=== PATIENT | male | born 1945 | race Caucasian/White ===

== ENCOUNTER 2021-04-30 16:42 | Emergency (ER) | payer OTHER, BC, SELFPAY ==
--- NOTE | ~2021-04-30 | CT_ITS ---
EXAMINATION: CT ABDOMEN AND PELVIS WITHOUT CONTRAST CLINICAL INFORMATION: Left flank pain. COMPARISON: CT abdomen without contrast 07/20/2007. TECHNIQUE: Multidetector volumetric imaging was performed from the superior aspect of the liver through the pubic symphysis. Sagittal and coronal reformatted images were obtained on the technologist's workstation. This CT examination was performed using dose optimization techniques as appropriate, variously including the following: *Automated exposure control *Adjustment of mA and/or kV according to patient size (this includes techniques or standardized protocols for targeted exams where dose is matched to indication/reason for exam; i.e. extremities or head) *Use of iterative reconstruction technique DLP: 529 mGy-cm FINDINGS: LUNG BASES: The lung bases are clear. There is bibasilar dependent emphysematous changes. Heart size is normal. LIVER, GALLBLADDER, AND BILIARY TREE: The liver is normal in size, shape, and attenuation. No focal hepatic lesion or biliary ductal dilatation is present. The gallbladder is unremarkable with no evidence of radiopaque gallstones, gallbladder wall thickening, or obvious pericholecystic inflammatory changes. PANCREAS: Unremarkable. SPLEEN: Unremarkable. ADRENAL GLANDS: Unremarkable. KIDNEYS AND URETERS: The right kidney is normal in size, shape, and attenuation. There is a 3 mm radiopaque calculi left UPJ with mild hydronephrosis and enlargement of left kidney. There is mild bilateral perinephric stranding. BLADDER: Unremarkable. GASTROINTESTINAL TRACT: There is scattered stool, diverticuli and gas seen throughout the colon. There is mild wall thickening of the sigmoid: Extending to the rectum. This could be secondary to underdistention or underlying inflammatory process. No perirectal and perisigmoid colon fat stranding seen. Rest of colon and small bowel loops are normal. The appendix is normal caliber. ABDOMINAL WALL: No significant hernia is appreciated. LYMPH NODES: Normal. VASCULAR: Unremarkable. PELVIC VISCERA: No free air or free fluid. The prostate gland is moderately enlarged elevating the base of the bladder. OSSEOUS STRUCTURES: There is degenerative disc changes L5-S1 disc level with vacuum disc phenomena moderate ventral spondylosis seen throughout lumbar spine. No acute fracture or lytic process seen. CT/CT abdomen pelvis wo con IMPRESSION: Obstructive 3 mm radiopaque calculi left UPJ with mild hydronephrosis and enlargement of left kidney. Mild constipation with diverticulosis but no diverticulitis or obstruction. Nonspecific mild wall thickening involving the rectum and the sigmoid colon. Nonspecific finding question inflammatory process. Correlate with clinical exam Moderate constipation
[2021-04-30 17:36] VITALS: BP 131/77; PULSE 64; RESP 16; TEMP 36.9; O2SAT 99; BMI 22.8
[2021-04-30 17:53] LABS: Glucose Urine UA NEG (NEG); Leukocyte Esterase Urine TRACE (NEG); Nitrite Urine NEG (NEG); PH 5.5 (5.0-8.0); Specific Gravity - Urine >= 1.030 (1.005-1.025); Urine Blood 3+ (NEG); Urine Ketones 15 MG/DL (NEG); Urine Protein TRACE MG/DL (NEG-TRACE)
[2021-04-30 17:59] LABS: Appearance Urine CLOUDY; Color Urine YELLOW; RBC Urine TNTC /HPF (0)
--- NOTE | 2021-04-30 18:17 | ED.GENADULT ---
HPI - General Adult General Chief complaint: General Medical Stated complaint: flank pain Time Seen by Provider: 04/30/21 18:17 Source: patient Mode of arrival: ambulatory Limitations: no limitations History of Present Illness HPI narrative: Patient with no significant past medical history noticed sudden onset of sharp pain left flank area since 13:00 radiating to left lower quadrant with dark urine and slight nausea no fever no chills no dysuria patient never had any kidney stone before no shortness of breath no cough Related Data Previous Rx's Medication Instructions Recorded ibuprofen 600 mg PO Q6H PRN #20 tab 04/30/21 oxycodone 5 mg PO Q6H PRN #20 tab 04/30/21 tamsulosin [Flomax] 0.4 mg PO DAILY #10 cap 04/30/21 Allergies Allergy/AdvReac Type Severity Reaction Status Date / Time No Known Allergies Allergy Verified 04/30/21 17:36 Review of Systems Review of Systems: Constitutional : No Weight loss, No Fever, No Chills ENT/Mouth : No sore throat, No Rhinorrhea Eyes: No Eye Pain, No Swelling Cardiovascular : No Chest Pain, no palpitations Respiratory : No Cough, No Sputum, no shortness of breath Gastrointestinal : + Nausea, No Vomiting, No Diarrhea, + abdominal Pain, no black stools Genitourinary : No Dysuria, No Urinary Frequency Musculoskeletal : No joint pain, No Myalgias, No Joint Swelling Skin : No Skin Lesions, No rash Neuro : No Weakness, No Numbness, No Dizziness, No Headache Psych : No Anxiety/Panic, No Depression Heme/Lymph: No Bruising, No Lymphadenopathy Endocrine : No Polyuria, No Polydipsia All other systems reviewed and are negative [facility] Social History Social History Advance Directives: No Advance Directives Information Provided: Yes Physical Exam Vital Signs: Vital Signs: Last Vital Signs Temp 98.1 F 04/30/21 20:03 Pulse 58 04/30/21 20:03 Resp 18 04/30/21 20:03 BP 116/67 04/30/21 20:03 Pulse Ox 96 04/30/21 20:03 Body Mass Index 22.8 Appearance: Alert. Oriented X3. No acute distress. Eyes: PERRLA, No Nystagmus ENT: Pharynx normal. Oral Mucosa moist Neck: Normal inspection. Neck supple. CVS: Normal heart rate and rhythm. Pulses normal. Respiratory: No respiratory distress. Equal air entry bilateral, no wheezing/rales/rhonchi Abdomen: Soft and nontender. Bowel sounds are present, no mass palpable, + L CVA tenderness Skin: Skin warm and dry. Normal skin color. Normal skin turgor. Extremities: No lower extremity edema. No calf tenderness Neuro: Oriented X 3. No motor deficit. No sensory deficit.No cerebellar signs , cranial nerves II-XII intact Medical Decision Making MDM Narrative Medical decision making narrative: Patient with 3 mm left UPJ stone with mild hydronephrosis feeling much better after pain medication will discharge him home on Flomax and oxycodone advised to follow with urologist Lab Data Lab results reviewed: Yes I reviewed the patient's lab results. Result diagrams: 04/30/21 18:42 04/30/21 18:42 Labs: Lab Results 04/30/21 04/30/21 04/30/21 Range/Units 17:44 18:42 18:42 WBC 7.5 (4.8-10.8) X10*3/uL RBC 4.28 L (4.60-5.80) X10*6/uL Hgb 14.7 (14.0-18.0) g/dl Hct 43.0 (42-52) % MCV 100.5 H (80-98) fL MCH 34.3 H (27.0-33.0) pg MCHC 34.2 (31.0-36.0) g/dl RDW 12.0 (11.0-16.0) % Plt Count 184 (160-400) X10*3/uL MPV 9.9 (9.4-12.4) fL Immature Gran % (Auto) 0.4 (0.0-0.4) % Neut % (Auto) 77.0 H (45-73) % Lymph % (Auto) 13.0 L (20-40) % Archuleta % (Auto) 7.9 (2-11) % Eos % (Auto) 1.3 (0-4) % Baso % (Auto) 0.4 (0-2) % Lymph # (Auto) 1.0 L (1.2-4.9) X10*3/uL [place]ule[place] # (Auto) 0.6 (0.1-1.2) X10*3/uL Eos # (Auto) 0.1 (0.0-0.4) X10*3/uL Baso # (Auto) 0.0 (0.0-0.2) X10*3/uL Abs Immat Gran (auto) 0.03 (0.00-0.03) X10*3/uL Absolute Neuts (auto) 5.7 (2.0-8.3) X10*3/uL Absolute Nucleated RBC 0.000 (0.0-0.012) X10*3/uL Nucleated RBC % (auto) 0.0 (0.0-0.2) /100WBC Sodium 139 (135-145) mmol/L Potassium 4.4 (3.3-5.1) mmol/L Chloride 106 (96-108) mmol/L Carbon Dioxide 22 (22-29) mmol/L Anion Gap 15 (12-20) BUN 16 (9-16) mg/dL Creatinine 0.95 (0.5-1.4) mg/dL Estim Creat Clear Calc 74.6 Estimated GFR > 60 Random Glucose 104 (60-115) mg/dL Calcium 9.4 (8.4-10.2) mg/dL Total Bilirubin 0.6 (0.0-1.0) mg/dL AST 33 (5-37) U/L ALT 13 (0-40) U/L Alkaline Phosphatase 66 (39-117) U/L Total Protein 6.4 L (6.5-8.0) g/dL Albumin 4.1 (3.5-5.0) g/dL Lipase 34 (8-78) U/L Urine Color YELLOW Urine Appearance CLOUDY Urine pH 5.5 (5.0-8.0) Ur Specific [place] >= 1.030 H (1.005-1.025) Urine Protein TRACE (NEG-TRACE) MG/DL Urine Glucose (UA) NEG (NEG) MG/DL Urine Ketones 15 (NEG) MG/DL Urine Blood 3+ H (NEG) Urine Nitrite NEG (NEG) Ur Leukocyte Esterase TRACE H (NEG) Urine RBC TNTC H (0) /HPF Urine WBC 1-4 (0-4) /HPF Ur Squamous Epith Cells NONE /LPF Urine Bacteria NONE /LPF Imaging Data CT scan - abdomen: Attestation: I personally reviewed and interpreted this imaging study as follows: Radiologist's impression: [facility] [place], [place] [address] Scan ReportSigned Patient: James Sol FMR#: [id number]: [id number]:[id number]/Sex: 75 / MADM Date: 04/30/21Loc: EDAttending Dr: Ordering Physician: Alo Morel MD Date of Service: 04/30/21 Procedure(s): CT abdomen pelvis wo con Accession Number(s): [id number] cc: Alo Morel MD~ EXAMINATION: CT ABDOMEN AND PELVIS WITHOUT CONTRAST CLINICAL INFORMATION: Left flank pain. COMPARISON: CT abdomen without contrast 07/20/2007. TECHNIQUE: Multidetector volumetric imaging was performed from the superior aspect of the liver through the pubic symphysis. Sagittal and coronal reformatted images were obtained on the technologist's workstation. This CT examination was performed using dose optimization techniques as appropriate, variously including the following: *Automated exposure control *Adjustment of mA and/or kV according to patient size (this includes techniques or standardized protocols for targeted exams where dose is matched to indication/reason for exam; i.e. extremities or head) *Use of iterative reconstruction technique DLP: 529 mGy-cm FINDINGS: LUNG BASES: The lung bases are clear. There is bibasilar dependent emphysematous changes. Heart size is normal. LIVER, GALLBLADDER, AND BILIARY TREE: The liver is normal in size, shape, and attenuation. No focal hepatic lesion or biliary ductal dilatation is present. The gallbladder is unremarkable with no evidence of radiopaque gallstones, gallbladder wall thickening, or obvious pericholecystic inflammatory changes. PANCREAS: Unremarkable. SPLEEN: Unremarkable. ADRENAL GLANDS: Unremarkable. KIDNEYS AND URETERS: The right kidney is normal in size, shape, and attenuation. There is a 3 mm radiopaque calculi left UPJ with mild hydronephrosis and enlargement of left kidney. There is mild bilateral perinephric stranding. BLADDER: Unremarkable. GASTROINTESTINAL TRACT: There is scattered stool, diverticuli and gas seen throughout the colon. There is mild wall thickening of the sigmoid: Extending to the rectum. This could be secondary to underdistention or underlying inflammatory process. No perirectal and perisigmoid colon fat stranding seen. Rest of colon and small bowel loops are normal. The appendix is normal caliber. ABDOMINAL WALL: No significant hernia is appreciated. LYMPH NODES: Normal. VASCULAR: Unremarkable. PELVIC VISCERA: No free air or free fluid. The prostate gland is moderately enlarged elevating the base of the bladder. OSSEOUS STRUCTURES: There is degenerative disc changes L5-S1 disc level with vacuum disc phenomena moderate ventral spondylosis seen throughout lumbar spine. No acute fracture or lytic process seen. CT/CT abdomen pelvis wo con IMPRESSION: Obstructive 3 mm radiopaque calculi left UPJ with mild hydronephrosis and enlargement of left kidney. Mild constipation with diverticulosis but no diverticulitis or obstruction. Nonspecific mild wall thickening involving the rectum and the sigmoid colon. Nonspecific finding question inflammatory process. Correlate with clinical exam Moderate constipation Discharge Plan Discharge Clinical Impression: Kidney stone on left side Patient Disposition: Home, Self-Care Instructions: Kidney Stones (ED) Additional Instructions: Drink plenty of fluids Take pain medication as prescribed Follow-up with urologist Report to ER if worsening of pain Prescriptions: New ibuprofen 600 mg tablet 600 mg PO Q6H PRN (Reason: pain) Qty: 20 RF: 0 oxycodone 5 mg tablet 5 mg PO Q6H PRN (Reason: Pain, Moderate) Qty: 20 RF: 0 tamsulosin [Flomax] 0.4 mg capsule 0.4 mg PO DAILY Qty: 10 RF: 0 Interventions: ED Discharge Assessment Last Done: 04/30/21 21:28 Discharge Date/Time: 04/30/21 21:32
[2021-04-30] MEDS: Morphine Sulfate 4 MG/ML CARTRIDGE IVPUSH (18:46)
[2021-04-30] MEDS: Ketorolac Tromethamine 15 MG/ML VIAL IVPUSH (18:46)
[2021-04-30] MEDS: ondansetron HCL 4 MG/2 ML VIAL IVPUSH (18:46)
[2021-04-30 18:47] LABS: MANUAL DIFF FLAG NO
[2021-04-30] MEDS: 0.9 % Sodium Chloride 1,000 ML 999 ML IVCONT (18:47)
[2021-04-30 18:49] LABS: Basophils Percent Auto 0.4 % (0-2); Eosinophils Absolute Auto 0.1 X10*3/uL (0.0-0.4); Eosinophils Percent Auto 1.3 % (0-4); Hemoglobin 14.7 g/dl (14.0-18.0); Imm Gran Abs Auto 0.03 X10*3/uL (0.00-0.03); Imm Gran Pct Auto 0.4 % (0.0-0.4); Mean Corpuscular HGB Conc 34.2 g/dl (31.0-36.0); Mean Corpuscular Hemoglobin 34.3 pg (27.0-33.0); Mean Corpuscular Volume 100.5 fL (80-98); Mean Platelet Volume 9.9 fL (9.4-12.4); Monocytes Absolute Auto 0.6 X10*3/uL (0.1-1.2); Monocytes Percent Auto 7.9 % (2-11); Neutrophils Absolute Auto 5.7 X10*3/uL (2.0-8.3); Platelet Count 184 X10*3/uL (160-400); Red Blood Count 4.28 X10*6/uL (4.60-5.80); White Blood Count 7.5 X10*3/uL (4.8-10.8)
[2021-04-30 18:54] VITALS: BP 161/99; PULSE 71; RESP 18; TEMP 36.4; O2SAT 97
[2021-04-30 19:20] LABS: Alanine Aminotransferase 13 U/L (0-40); Albumin Level 4.1 g/dL (3.5-5.0); Alkaline Phosphatase 66 U/L (39-117); Anion Gap 15 (12-20); Aspartate Amino Transferase 33 U/L (5-37); Bilirubin Total 0.6 mg/dL (0.0-1.0); Blood Urea Nitrogen 16 mg/dL (9-16); Calcium 9.4 mg/dL (8.4-10.2); Carbon Dioxide 22 mmol/L (22-29); Chloride 106 mmol/L (96-108); Creatinine Clr Calc Pharmacy 74.6; Estimated Glomerular Filt Rate > 60; Glucose Random 104 mg/dL (60-115); Lipase 34 U/L (8-78); Potassium 4.4 mmol/L (3.3-5.1); Sodium 139 mmol/L (135-145); Total Protein 6.4 g/dL (6.5-8.0)
[2021-04-30 20:03] VITALS: BP 116/67; PULSE 58; RESP 18; TEMP 36.7; O2SAT 96
[2021-04-30] MEDS: oxyCODONE HCl Immed Release 5 MG TABLET 10 MG PO (21:09)
[2021-04-30] MEDS: Tamsulosin HCL 0.4 MG CAPSULE PO (21:10)
== END 2021-04-30 21:32 | disposition home or self-care (01) ==
PROVIDERS: Emergency Provider Internal Medicine; PCP Internal Medicine
DX: N13.2 Hydronephrosis with renal and ureteral calculous obstruction (principal)
CPT/HCPCS: 36415; 74176; 80053; 81001; 83690; 85025; 96361; 96374; 96375; 99284; J1885; J2270; J2405

== ENCOUNTER → 2021-05-07 09:32 | Outpatient (BNVA) | payer OTHER, BC, SELFPAY | PROVIDERS: PCP Internal Medicine; Visit Provider Urology | DX: N20.0 Calculus of kidney (principal) | CPT/HCPCS: 99202 ==

== ENCOUNTER 2021-05-17 08:20 | Outpatient (REF) | payer BC, SELFPAY ==
--- NOTE | ~2021-05-17 | US_ITS ---
EXAMINATION: US RETROPERITONEAL LIMITED (RENAL ONLY) CLINICAL INFORMATION: Renal stone. COMPARISON: Previous CT of the abdomen and pelvis April 2021 TECHNIQUE: Grayscale and color imaging of the kidneys FINDINGS: RIGHT KIDNEY: 9.6 x 6.1 x 4.8 cm (SAG x AP x TRV). The kidney is normal in size, contour, and echogenicity. Renal cortical thickness is normal. There is a 3 mm echogenic density in the lower pole without acoustic shadowing or twinkle artifact to suggest a stone. No stone is seen on recent CT scan. No focal parenchymal lesions. No hydronephrosis. LEFT KIDNEY: 11 x 6.9 x 5.4 cm (SAG x AP x TRV). The kidney is normal in size, contour, and echogenicity. Renal cortical thickness is normal. No calculi or focal parenchymal lesions. No hydronephrosis. The previously identified left hydronephrosis has resolved. US/US renal BI IMPRESSION: 3 mm echogenic focus in the lower pole of the right kidney probably representing vascular reflector as opposed to stone. No left renal stone seen. Resolved left hydronephrosis.
== END 2021-05-17 08:21 | disposition home or self-care (01) ==
LOC: HO.HMGCX 08:20
PROVIDERS: PCP Internal Medicine; Visit Provider Urology
DX: N20.0 Calculus of kidney (principal)
CPT/HCPCS: 76775

== ENCOUNTER → 2021-06-11 11:37 | Outpatient (BNVA) | payer BC, SELFPAY | PROVIDERS: PCP Internal Medicine ==

== ENCOUNTER 2023-04-21 10:09 | Outpatient (AMB) | payer BC, SELFPAY ==
--- NOTE | 2023-04-21 10:21 | A.OFFVIS_ITS ---
Intake Vital Signs 04/21/23 10:38 Height 6 ft Weight 160 lb 2 oz BMI 21.7 BP 154/82 H Blood Pressure Location Lt brachial Position Sitting Pulse 62 Intake Visit Reasons: Bilateral inguinal hernias, right side pain Intake Note: Patient is seen in office for evaluation and treatment of a bilateral inguinal hernias. Pt c/o; onset for years, has increase in size, admits to minimal pain and discharge, no prior imaging Operations Welder Required: No Accompanied by: Self / Same As Patient Allergies oxycodone Allergy (Verified 04/21/23 10:36) Hives Medication List - Last Reconciled 04/21/23 by James Melendez MD amlodipine 10 mg PO DAILY hydrocodone-acetaminophen 5-500 mg tabs PO .prn HPI HPI Comments History of Present Illness Details 77-year-old male patient 1st noted to have a bilateral inguinal hernia approximately 5 years ago on physical examination. Initially he was asymptomatic but over time the hernias become more noticeable. He has occasional discomfort in the right groin and feels the right side as become larger than left. He denies associated symptoms including nausea, vomiting, fever, chills, diarrhea, constipation, or bloody stool. He denies a previous history of hernia surgeries. He is requesting repair of the bilateral inguinal hernias. [facility] Medical History HTN (hypertension) with goal to be determined Surgical History Previous back surgery Social History Alcohol intake: current Patient Tobacco Use Status: Never used Tobacco Review of Systems Const All systems reviewed & are unremarkable except as noted in HPI and below GI Reports as per HPI and Reports abdominal pain Physical Exam Vital Signs: Last Vital Signs Pulse 62 04/21/23 10:38 BP 154/82 H 04/21/23 10:38 BMI result Body Mass Index 21.7 Const General: no acute distress and well developed Nutritional Appearance: well nourished and thin Orientation/consciousness: patient oriented x3 Limitations: no limitations HEENT Head: Yes normocephalic and Yes atraumatic Ears: hearing grossly normal bilaterally Neck Neck: Yes normal visual inspection Resp Effort & Inspection: normal respiratory effort, no audible wheezes, no cough and no respiratory distress GI Other: Soft, nondistended, nontender, easily identified bilateral inguinal hernias in the standing position which increase in size with Valsalva maneuvers. The hernia is reduced easily with light pressure. Skin Other: Warm, dry, no rash Neuro General: patient oriented x3 Extrem General: Yes no clubbing, cyanosis or edema Assessment & Plan Assessment & Plan (1) Bilateral inguinal hernia (BIH): Code(s): K40.20 - Bilateral inguinal hernia, without obstruction or gangrene, not specified as recurrent Plan 77-year-old male patient presenting with bilateral inguinal hernias which have gradually increased in size over the past 5 years and is now causing discomfort. Patient is requesting repair of the bilateral inguinal hernias. On examination he has an easily reducible bilateral inguinal hernia with minimal tenderness to palpation. I reviewed the procedure, risks, and alternatives in detail and he consents to repair of the bilateral inguinal hernias with mesh. This will be scheduled at his earliest convenience. Coding Level of Care Code New Pt Level 4 (04038) Diagnoses Bilateral inguinal hernia (BIH) K40.20
[2023-04-21 10:38] VITALS: BP 154/82; PULSE 62; BMI 21.7
== END 2023-04-21 10:47 | disposition home or self-care (01) ==
PROVIDERS: PCP Internal Medicine; Referring Provider Internal Medicine; Visit Provider Surgery
DX: K40.20 Bilateral inguinal hernia, without obstruction or gangrene, not specified as recurrent (principal)
CPT/HCPCS: 99204

== ENCOUNTER → 2023-04-21 10:09 | Outpatient (BNVA) | payer BC, SELFPAY | PROVIDERS: PCP Internal Medicine; Referring Provider Internal Medicine; Visit Provider Surgery ==

== ENCOUNTER 2023-04-27 07:43 | Day surgery (SDC) | payer BC, SELFPAY ==
[2023-04-27 07:52] VITALS: BMI 21.7
[2023-04-27 08:06] VITALS: BP 130/69; PULSE 50; RESP 18; TEMP 36.6; O2SAT 97
--- NOTE | 2023-04-27 09:12 | P.CONAN_ITS ---
[facility] Active Problems Active Problems: All Active Problems (Updated 04/21/23 @ 10:50 by James Melendez MD) Bilateral inguinal hernia (BIH) (Acute) Nephrolithiasis (Acute) Past Medical History Medical History HTN (hypertension) with goal to be determined Surgical History Surgical History Previous back surgery History of Problems with Anesthesia: No Social History Social History Alcohol intake: current Patient Tobacco Use Status: Never used Tobacco Meds Allergies Allergy/AdvReac Type Severity Reaction Status Date / Time oxycodone Allergy Hives Verified 04/27/23 08:19 Active Medications: Current Medications Lactated Ringer's (Lr) 1,000 mls @ 100 mls/hr IVCONT .Q10H [facility] Home Medications Medication Instructions Recorded Confirmed Last Taken Type amlodipine 10 mg tablet 10 mg PO DAILY 06/11/21 04/27/23 Unknown History Exam Exam Date and Time: April 27, 2023 0912 Height,Weight and Vital Signs: Height 6 ft Weight 72.575 kg Last Vital Signs Temp 97.9 F 04/27/23 08:06 Pulse 50 04/27/23 08:06 Resp 18 04/27/23 08:06 BP 130/69 04/27/23 08:06 Pulse Ox 97 04/27/23 08:06 O2 Del Method Room Air 04/27/23 08:06 Airway Mallampati Class: III TM Dist: >3cm Neck ROM: Full Loose/Missing/Broken Teeth: No Heart: RRR Lungs: CTA Assessment and Plan Assessment Anesthesia Assessment: Anesthesia Plan Discussed and Chart Reviewed Final Anesthetic Review History of Problems with Anesthesia: No NPO: Yes ASA Class: II Final Preanesthetic Review: Meds/Allgs Chart Reviewed, Consent Obtained/Reviewed and Anes Risks/Benef Reviewed Patient Risk: Low Procedure Risk: Low Anesthetic Plan Anesthetic Plan: GA Disposition: Standard PACU
--- NOTE | 2023-04-27 10:07 | MHC.SHP ---
Pre-Procedural Eval Section A Date of Service: 04/27/23 The patient is an INPATIENT: No Changes since office visit: Yes Patient answered all questions; No Cold of Flu in the past 2 weeks, No New Medical Problems and No Changes in Medication The History & Physical has been completed within 30 days and I have reviewed it.: Yes Section B Chief Complaint: Bilateral inguinal hernia, without obstruction or Allergies: Allergies Allergy/AdvReac Type Severity Reaction Status Date / Time oxycodone Allergy Hives Verified 04/27/23 08:19 Plan Diagnosis/Plan: Unchanged I have reviewed the history and physical and performed a pertinent physical examination on my patient. No changes have occurred unless specified. Time Spent With Patient Time: Total time managing care of this patient today ____ minutes.
--- NOTE | 2023-04-27 10:07 | W.PM.OPN ---
Operative Note Operative Note Date of Service: 04/27/23 Narrative: Preoperative diagnosis: Bilateral inguinal hernias Postoperative diagnosis: same Procedure: repair of bilateral inguinal hernias with mesh Surgeon: James Melendez MD Ad Terminal Makeup Operator: Keren Carmen PA-C Anesthesia: general LMA Indications for procedure: 77-year-old male patient presenting with complaints of painful lump bilateral inguinal or regions. On examination patient was found to have reducible bilateral inguinal hernias. There is no tenderness associated with palpation. Operative findings: Bilateral direct inguinal hernias Specimen: none Estimated blood loss: less than 2 mL Complications: none Procedure details: patient was brought to the OR placed in a supine position. After administering general anesthesia patient's abdomen was prepped with ChloraPrep and draped in a sterile fashion. A surgical time-out was called the consent confirmed. Patient received preoperative antibiotics and Venodyne boots were in place. Beginning on the left side local anesthesia was infiltrated over the left inguinal ligament. Incision was then made with a scalpel in oblique fashion over the inguinal ligament. This was carried out through subcutaneous tissue, past Deanne's fashion up to the external oblique aponeurosis. Additional local was infiltrated below the fascia. This was then incised with a scalpel and widened with the Metzenbaum scissors. The spermatic cord was then dissected from the surrounding inguinal canal and retracted using a Pantera drain. A direct inguinal hernia was immediately identified. Fibers of the cremaster muscle were and no indirect hernia could be identified. Fibers of the internal oblique and transversalis aponeurosis were then divided at the floor of the inguinal canal. Peritoneal space was then identified. This was widened using an open Ray-Angélica sponge. A medium PHS mesh was then obtained. The circular underlay was then deployed within the preperitoneal space. The overlay was then secured to the pubic tubercle, conjoined tendon, and shelving edge of the inguinal ligament using 0 Polysorb sutures. A slit was made in the mesh at the internal ring and wrapped around the spermatic cord. This was then secured to the shelving edge again using the 0 Polysorb suture. Wounds were irrigated with saline solution and suctioned dry. Wounds were checked for hemostasis. External oblique aponeurosis was then closed using a running 2 0 Polysorb suture. Attention was then directed to the right side were again local anesthesia was infiltrated over the right inguinal ligament. Incision was then made with a scalpel over the ligament carried out through subcutaneous tissue, past Deanne's fascia and up to the external oblique aponeurosis. Additional local was infiltrated below the fascia. This was then incised with a scalpel and wide with the Metzenbaum scissors. The spermatic cord was then dissected free from the surrounding inguinal canal and retracted using a [place] drain. A direct inguinal hernia was again identified on the right side. Fibers of the cremaster muscle were and no indirect hernia could be identified. Fibers of the internal oblique and transversalis aponeurosis were then divided at the floor of the inguinal canal. A preperitoneal space was then entered this was then widened with a open Ray-Angélica sponge. A medium PHS mesh was then again obtained. The circular underlay was deployed within the preperitoneal space and the overlay secured to the pubic tubercle, conjoined tendon, and shelving edge of the inguinal ligament. This was done using a 0 Polysorb suture . A slit was made in the mesh at the internal ring and wrapped around the spermatic cord. This was then secured using 0 Polysorb suture to the shelving edge. Wounds were then irrigated with saline solution and suctioned dry. Wounds were checked for hemostasis. The external oblique aponeurosis was then closed using a running 2 0 Polysorb suture. Both incisions were the then infiltrated with 4 mL of Zenrelef below the aponeurosis. Deanne's fascia was then reapproximated using interrupted 3-0 Polysorb sutures. Dermis was reapproximated using interrupted 3-0 Polysorb sutures. Skin was closed in both incisions using a running subcuticular 4-0 Polysorb suture. Steri-Strips, 2 x 2 gauze and Tegaderm were then applied. The patient tolerated the procedure well. Sponge, instrument, and needle counts reported as correct. Patient was transferred to PACU in stable condition.
[2023-04-27 11:15] VITALS: BP 136/79; PULSE 83; RESP 20; TEMP 36.8; O2SAT 100
[2023-04-27 11:20] VITALS: BP 128/75; PULSE 77; RESP 20; O2SAT 97
[2023-04-27 11:25] VITALS: BP 122/71; PULSE 67; RESP 20; O2SAT 97
[2023-04-27 11:30] VITALS: BP 117/77; PULSE 53; RESP 20; O2SAT 98
[2023-04-27 11:45] VITALS: BP 118/76; PULSE 50; RESP 16; TEMP 36.8; O2SAT 98
== END 2023-04-27 12:03 | disposition home or self-care (01) ==
PROVIDERS: PCP Internal Medicine; Visit Provider Surgery
PROC: (CPT 49505; principal; 2023-04-27 09:50)
DX: K40.20 Bilateral inguinal hernia, without obstruction or gangrene, not specified as recurrent (principal); I10 Essential (primary) hypertension; Z79.899 Other long term (current) drug therapy; Z88.8 Allergy status to other drugs, medicaments and biological substances
CPT/HCPCS: 49505; C1781; C9088; J0131; J0690; J1100; J1885; J2405; J2795; J3010

== ENCOUNTER → 2023-04-27 07:43 | Outpatient (BNV) | payer BC, SELFPAY | PROVIDERS: PCP Internal Medicine; Visit Provider Surgery | DX: K40.20 Bilateral inguinal hernia, without obstruction or gangrene, not specified as recurrent (principal) | CPT/HCPCS: 49505 ==

== ENCOUNTER 2023-05-07 09:38 | Outpatient (AMB) | payer BC, SELFPAY ==
--- NOTE | 2023-05-07 09:46 | MHC.OFFVIS ---
Intake Vital Signs 05/07/23 09:51 Height 6 ft Weight 159 lb 9.835 oz BMI 21.6 BP 122/80 Blood Pressure Location Lt brachial Position Sitting Intake Visit Reasons: S/P bilat. inguinal hernia repair w/mesh Intake Note: Patient is seen in office for post op assessment post bilateral inguinal hernia repair. 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 He reports significant pain starting postoperative day 2 with swelling and bruising extending into the scrotum. He denies nausea or vomiting but did have constipation until several days ago. He is urinating without difficulty. He reports the pain is much improved over the last 2 days. FORMERLY [facility], [facility] Medical History HTN (hypertension) with goal to be determined Surgical History History of bilateral inguinal hernia repair (04/27/23) Previous back surgery Social History Alcohol intake: current Patient Tobacco Use Status: Never used Tobacco Physical Exam Const General: no acute distress Nutritional Appearance: well nourished Orientation/consciousness: patient oriented x3 Limitations: no limitations GI Other: Incisions in the bilateral groin are clean, dry, and intact. There is ecchymosis extending into the scrotal sac and bilateral lower extremities. No hematoma is palpable. No hernias noted with Valsalva maneuvers. Skin Other: Warm, dry, no rash Neuro General: patient oriented x3 Assessment & Plan Assessment & Plan (1) Bilateral inguinal hernia (BIH): Code(s): K40.20 - Bilateral inguinal hernia, without obstruction or gangrene, not specified as recurrent Plan Patient returns 1 week following repair of bilateral inguinal hernias. He tolerated the procedure well. His wounds are clean, dry, and intact. There is no evidence of wound infection or hematoma. He should follow up in 4 weeks for a final wound check. He is welcome to call sooner for any new concerns. Coding Level of Care Code Global (52252) Diagnoses Bilateral inguinal hernia (BIH) K40.20
[2023-05-07 09:51] VITALS: BP 122/80; BMI 21.6
== END 2023-05-07 09:57 | disposition home or self-care (01) ==
PROVIDERS: PCP Internal Medicine; Visit Provider Surgery
DX: K40.20 Bilateral inguinal hernia, without obstruction or gangrene, not specified as recurrent (principal)
CPT/HCPCS: 99024

== ENCOUNTER → 2023-05-07 09:38 | Outpatient (BNVA) | payer BC, SELFPAY | PROVIDERS: PCP Internal Medicine; Visit Provider Surgery ==

== ENCOUNTER 2023-06-04 09:14 | Outpatient (AMB) | payer BC, SELFPAY ==
--- NOTE | 2023-06-04 09:17 | A.OFFVIS_ITS ---
Intake Vital Signs 06/04/23 09:24 Height 6 ft Weight 157 lb BMI 21.3 BP not taken reason Patient Refused Intake Visit Reasons: 4 wk follow up erin inguinal hernia repair Intake Note: Patient is seen in office for one month follow up visit, post bilateral hernia repair. 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 He denies any problems and feels much improved. His bowels are back to normal. [facility] Medical History HTN (hypertension) with goal to be determined Surgical History History of bilateral inguinal hernia repair (04/27/23) Previous back surgery Social History Alcohol intake: current Patient Tobacco Use Status: Never used Tobacco Physical Exam Vital Signs: BMI result Body Mass Index 21.3 Const General: no acute distress Nutritional Appearance: well nourished Orientation/consciousness: patient oriented x3 Resp Effort & Inspection: normal respiratory effort GI Other: Bilateral inguinal incisions are clean, dry, and intact without redness or discharge. No hernia noted with Valsalva maneuvers. Neuro General: patient oriented x3 Assessment & Plan Assessment & Plan (1) Bilateral inguinal hernia (BIH): Code(s): K40.20 - Bilateral inguinal hernia, without obstruction or gangrene, not specified as recurrent Plan Bilateral inguinal hernia repair with mesh. Patient tolerated the procedure well and his wounds are healing nicely. He should follow up as needed. He may resume normal activities. Coding Level of Care Code Global (54277) Diagnoses Bilateral inguinal hernia (BIH) K40.20
[2023-06-04 09:24] VITALS: BMI 21.3
== END 2023-06-04 09:25 | disposition home or self-care (01) ==
PROVIDERS: PCP Internal Medicine; Visit Provider Surgery
DX: K40.20 Bilateral inguinal hernia, without obstruction or gangrene, not specified as recurrent (principal)
CPT/HCPCS: 99024

== ENCOUNTER → 2023-06-04 09:14 | Outpatient (BNVA) | payer BC, SELFPAY | PROVIDERS: PCP Internal Medicine; Visit Provider Surgery ==

== ENCOUNTER 2025-08-21 08:19 | Outpatient (AMB) | payer BC, SELFPAY ==
--- NOTE | 2025-08-21 08:25 | MHC.PC.OV ---
Vital Signs 08/21/25 08:33 Height 5 ft 11.75 in Weight 148 lb 0.4 oz BMI 20.2 BP 124/62 Pulse 80 Pulse Source Pulse Oximeter Temp 97.7 F Pulse Oximetry (%) 95 Intake Visit Reasons: Right leg sciatic pain Intake Note: no other issues but having cataract done right eye left was already done Allergies oxycodone Allergy (Verified 08/21/25 08:33) Hives [facility] Medical History (Updated 08/21/25 @ 09:01 by Blake Guerrero MD) Sciatica HTN (hypertension) with goal to be determined Surgical History History of bilateral inguinal hernia repair (04/27/23) Previous back surgery Social History Alcohol intake: current Patient Tobacco Use Status: Never used Tobacco Questionnaire PHQ-9 Over the last 2 weeks, how often have you been bothered by any of the following problems? 1. Little interest or pleasure in doing things: not at all 2. Feeling down, depressed, or hopeless: not at all 3. Trouble falling or staying asleep, or sleeping too much: not at all 4. Feeling tired or having little energy: not at all 5. Poor appetite or overeating: not at all 6. Feeling bad about yourself - or that you are a failure or have let yourself or your family down: not at all 7. Trouble concentrating on things, such as reading the newspaper or watching television: not at all 8. Moving or speaking so slowly that other people could have noticed. Or the opposite - being so fidgety or restless that you have been moving around a lot more than usual: not at all 9. Thoughts that you would be better off or of hurting yourself in some way: not at all Total score: 0 Source: Developed by Drs. Pietro Sabillon, Naomi Red, Sanjay Zavala and colleagues, with an educational lia from [employer] Thrive Questionnaire Date Thrive assessed: 08/21/25 I am a: Patient What is your living situation today?: I have a steady place to live Within the past 12 months, did the food you bought not last and you didn't have the money to get more?: Never true Within the past 12 months, did you worry whether your food would run out before you got money to buy more?: Never true Do you have trouble paying for medicines?: No Do you have trouble getting transportation to medical appointments?: Yes Do you have trouble paying your heating and electricity bill?: No Do you have trouble taking care of your child, family member or friend?: No Do you have trouble with day-to-day activities such as bathing, preparing meals, shopping, managing finances, etc.?: No Are you currently unemployed and looking for a job?: No Are you interested in more education?: No THRIVE Score: 1 SHAW-7 AMB Questionnaire SHAW-7 Date SHAW - 7 assessed: 08/21/25 Feeling nervous, anxious, or on edge: 2 = More than half the days Not being able to stop or control worryin = Not at all Worrying too much about different things: 0 = Not at all Trouble relaxin = Not at all Being so restless that it is hard to sit still: 0 = Not at all Becoming easily annoyed or irritable: 3 = Nearly every day Feeling afraid as if something awful might happen: 0 = Not at all Total SHAW-7 score (0-4 normal; 5-9 mild; 10-14 moderate; 15-21 severe): 5 Source: Developed by Drs. Pietro Sabillon, Naomi Red, Sanjay Zavala and colleagues, with an educational lia from [employer] Physical exam (Primary Care) Vital Signs: Last Vital Signs Temp 97.7 F 08/21/25 08:33 Pulse 80 08/21/25 08:33 BP 124/62 08/21/25 08:33 Pulse Ox 95 08/21/25 08:33 BMI result Body Mass Index 20.2 Tobacco/Smoking Status: Tobacco use Status Patient Tobacco Use Status Never used Tobacco 08/21/25 08:36 PHQ-9: PHQ-9 Score PHQ-9: Total score 0 08/21/25 08:36 Thrive Assessment: Date of Thrive Assessment Date Thrive assessed 08/21/25 08/21/25 08:36 Coding Level of Care Code New Pt Level 4 (23858) Complex EM visit Add On G2211 Diagnoses Sciatica M54.30 Assessment & Plan Assessment & Plan (1) Sciatica: Code(s): M54.30 - Sciatica, unspecified side Category: Medical Plan: History of Present Illness - The patient is a 80-year-old male presenting for evaluation of worsening right-sided sciatic-like pain. - The patient reports the pain began over a year ago and radiates from his right hip to his right ankle, sometimes affecting his great toe and knee. - Initially, the pain was transient and responded well to ibuprofen, but it has now become a steady, daily pain that is no longer relieved by ibuprofen, of which he takes 4-5 600 mg tablets per day. - Associated symptoms include transient, non-painful episodes of paresthesias, pins and needles, and a burning sensation. - He denies experiencing any muscle spasms with this pain. - The patient denies any fall or injury that precipitated the pain. - Relevant medical history includes kidney stones about a year ago and cataracts for which he is awaiting surgery. - He reports an intolerance to Percocet but has previously used Vicodin and Percodin without issues of dependency. - He intentionally lost 50 pounds since 2019 by reducing caloric intake and increasing physical activity. 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 - He lives alone and was last September. - He is functionally independent with activities of daily living, such as grocery shopping. - The patient drives but avoids driving at night due to cataracts. - He has social support from his sister and neighbors for transportation to medical procedures if needed; his children live in [place]. - He reports an intentional 50-pound weight loss since 2019, achieved through reduced calorie intake and increased physical activity. Review of Systems - Musculoskeletal: Reports steady pain in the right hip, quinteros, and ankle with good range of motion of the hip. Denies precipitating trauma. - Neurological: Reports transient episodes of paresthesia, described as pins and needles and a burning sensation, in the right lower extremity. - Genitourinary: Reports urinary frequency. Denies urinary incontinence. - Constitutional: Reports waking up in pain daily. Reports intentional weight loss of 50 pounds since 2020. Denies unintentional weight loss. - Eyes: Reports cataracts and difficulty driving at night. Physical Exam General: Cooperative and healthy appearing Nutritional Appearance: Well nourished Orientation/consciousness: Patient oriented x3 Limitations: No limitations Head: Normal to inspection General: Appearance normal, both eyes and all related structures Neck: Normal visual inspection Chest: Normal palpation of entire chest wall Respiratory: N ormal respiratory effort Neurology: Patient oriented x3, reports power seizures and pins and needles sensation, but no significant pain. Results - No new lab or imaging results were reviewed during the visit. - Patient reports last blood work was done in August of the prior year. Plan - Order blood work to check for inflammation, infection, and prostate-specific antigen (PSA). - Order an X-ray of the right hip to evaluate for arthritis. - Order an MRI of the lumbar spine to investigate for a surgically correctable etiology of his pain. - Prescribe tramadol 50 mg to be taken twice daily for pain management. - Prescribe a muscle relaxant to be taken as needed for potential symptomatic relief. - A referral for physical therapy will be placed, but the patient is instructed to hold off on starting treatment for now. - The patient will follow up in one month to review diagnostic results and assess his clinical status. Discussion Notes I discussed with the patient the methodical, step-esteves approach for diagnosing the cause of his worsening right-sided pain. I explained that while arthritis is a possibility, it is important to obtain an MRI of his lower back to rule out a surgically correctable issue, which he understood. I informed him that we may face initial denial from his insurance for the MRI, but I would work to get it approved. We discussed pain management options, and the patient noted an intolerance to Percocet. I explained that tramadol is in the opiate class of medications and can be habit-forming. The patient acknowledged this risk and stated he has used similar medications in the past for kidney stones without developing a dependency. Based on this discussion, I will prescribe tramadol 50 mg twice daily and a muscle relaxant. The plan to proceed with blood work, a right hip X-ray, a lumbar MRI, and a follow-up in one month was confirmed with the patient. Patient Instructions - Please go to a laboratory to have your blood drawn for the tests we discussed. - Please get an X-ray of your right hip. - We will contact you to schedule an MRI of your lower back. - You have a new prescription for tramadol 50 mg. You may take one pill twice a day to help with your pain. Be aware that this is a strong pain reliever (an opioid) and can be habit-forming. - You also have a prescription for a muscle relaxant. Please take it as directed, as it may provide some relief. - We have put in a referral for physical therapy, but please wait for our instructions before you begin treatment. - Please schedule a follow-up visit with our office in one month to go over your test results and see how you are doing.
[2025-08-21 08:33] VITALS: BP 124/62; PULSE 80; TEMP 36.5; O2SAT 95; BMI 20.2
--- OUTSIDE RECORDS SUMMARY | 2025-08-21 08:41 | XMS_ITS | Patient Health Record ---
Author Organization [facility] Address [address] [place] [id number] Care Team Providers Care Room Service Food Service Attendant Name Role Phone Pietro Posada [phone] Reason For Referral No Information Plan Of Treatment No Information
== END 2025-08-21 08:57 | disposition home or self-care (01) ==
LOC: HO.HMCSH 08:19
PROVIDERS: PCP Internal Medicine; Visit Provider Internal Medicine
DX: M54.30 Sciatica, unspecified side (principal)

== ENCOUNTER 2025-08-29 07:05 | Outpatient (REF) | payer BC, SELFPAY ==
[2025-08-29 10:58] LABS: Appearance Urine Clear; Glucose Urine UA Negative (Negative); PH 5.5 (5.0-9.0); Specific Gravity - Urine 1.015 (1.005-1.025)
[2025-08-29 11:11] LABS: Hematocrit 42.3 % (42.0-52.0); Hemoglobin 14.1 g/dl (14.0-18.0); Mean Corpuscular HGB Conc 33.3 g/dl (31.0-36.0); Mean Corpuscular Hemoglobin 34.6 pg (27.0-33.0); Mean Corpuscular Volume 103.7 fL (80.0-98.0); NRBC Abs Auto 0.000 X10*3/uL (0.0-0.012); NRBC Pct Auto 0.0 /100WBC (0.0-0.2); Platelet Count 207 X10*3/uL (160-400); Red Blood Count 4.08 X10*6/uL (4.60-5.80); White Blood Count 6.8 X10*3/uL (4.8-10.8)
[2025-08-29 11:18] LABS: Alanine Aminotransferase 11 U/L (0-40); Albumin Level 4.0 g/dL (3.5-5.0); Alkaline Phosphatase 77 U/L (39-117); Anion Gap 12 (12-20); Aspartate Amino Transferase 30 U/L (5-37); Blood Urea Nitrogen 18 mg/dL (9-16); Calcium 8.9 mg/dL (8.4-10.2); Carbon Dioxide 24 mmol/L (22-29); Chloride 110 mmol/L (96-108); Cholesterol 175 mg/dL (<200); Estimated Glomerular Filt Rate > 60; HDL Cholesterol 64 mg/dL (>40); Potassium 3.7 mmol/L (3.3-5.1); Sodium 142 mmol/L (135-145); Total Protein 5.8 g/dL (6.5-8.0); Triglycerides 44 mg/dL (<150)
[2025-08-29 11:34] LABS: Thyroid Stimulating Hormone 0.98 uIU/mL (0.32-4.0)
== END 2025-08-29 07:06 | disposition home or self-care (01) ==
LOC: HO.HMGCLDS 07:05
PROVIDERS: PCP Internal Medicine; Visit Provider Internal Medicine
DX: Z12.5 Encounter for screening for malignant neoplasm of prostate (principal); M54.30 Sciatica, unspecified side; Z13.6 Encounter for screening for cardiovascular disorders; Z13.29 Encounter for screening for other suspected endocrine disorder
CPT/HCPCS: 36415; 80048; 80061; 80076; 81003; 84153; 84443; 85027; 85652; 86140

== ENCOUNTER 2025-09-02 09:11 | Outpatient (REF) | payer BC, SELFPAY ==
--- NOTE | ~2025-09-02 | XR_ITS ---
EXAMINATION: XR HIP, RIGHT CLINICAL INFORMATION: M54.30 - Sciatica, unspecified side COMPARISON: None available. TECHNIQUE: Two views of the right hip. Pelvis 1 view FINDINGS: Right hip: No fracture. Alignment is anatomic. Hip joint space is maintained. No abnormal soft tissue calcification. Pelvis: Left hip joint space is maintained. No acute fracture or dislocation. Mild symphysis pubis degeneration. SI joints are intact. No acute pelvic fractures identified. Phleboliths in the pelvis. No suspicious soft tissue calcifications. XR/XR hip RT w PEL1V IMPRESSION: No acute osseous findings Electronically signed by: Alberto Solis MD 09/04/2025 07:16 AM [facility]
--- OUTSIDE RECORDS SUMMARY | 2025-09-02 09:14 | XMS_ITS | Patient Health Record ---
Author Organization [facility] Address [address] [place] [id number] Care Team Providers Care Translator/Interpreter Name Role Phone Pietro Posada [phone] Reason For Referral No Information Plan Of Treatment No Information
== END 2025-09-02 09:12 | disposition home or self-care (01) ==
LOC: HO.HMGCX 09:11
PROVIDERS: PCP Internal Medicine; Visit Provider Internal Medicine
DX: M54.30 Sciatica, unspecified side (principal)
CPT/HCPCS: 73502

== ENCOUNTER → 2025-09-02 09:14 | Outpatient (BNV) | payer BC, SELFPAY | PROVIDERS: PCP Internal Medicine; Visit Provider Radiology Diagnostic Ultrasound | DX: M54.30 Sciatica, unspecified side (principal) | CPT/HCPCS: 73502 ==

== ENCOUNTER 2025-09-19 10:01 | Outpatient (AMB) | payer MEDICARE, BC, SELFPAY ==
[2025-09-19 10:18] VITALS: BP 126/65; PULSE 62; RESP 14; TEMP 36.3; O2SAT 99; BMI 20.2
--- NOTE | 2025-09-19 10:18 | MHC.PC.OV ---
Vital Signs 09/19/25 10:18 Height 5 ft 11.75 in Weight 148 lb BMI 20.2 BP 126/65 Blood Pressure Location Rt brachial Position Sitting Respiration 14 Pulse 62 Pulse Source Pulse Oximeter Temp 97.4 F Temp Source Temporal Artery Scan Pulse Oximetry (%) 99 Oxygen Delivery Method Room Air Intake Visit Reasons: Establish Care Sports Journalist Required: No Accompanied by: Self / Same As Patient Allergies oxycodone Allergy (Verified 09/19/25 10:18) Hives Tobacco use date assessed: 09/19/25 Fall risk assessment: No Falls in past year Last assessed Fall Risk: 09/19/25 Dental Screening Dental Screen Date: 09/19/25 Did you have a dental visit in the last 12 months?: No Did you have a dental problem in the last 6 months where you did not have access to dental care?: No PFSH Medical History Sciatica HTN (hypertension) with goal to be determined Surgical History History of bilateral inguinal hernia repair (04/27/23) Previous back surgery Social History (Updated 09/19/25 @ 10:27 by HUNTER Vergara) Housing: House Alcohol intake: current Alcohol intake frequency: 0-2 drinks per day Patient Tobacco Use Status: Former Tobacco user service: No Current occupational status: retired Cognitive needs: No Hearing needs: Yes Vision needs: Yes Questionnaire PHQ-9 Over the last 2 weeks, how often have you been bothered by any of the following problems? 1. Little interest or pleasure in doing things: not at all 2. Feeling down, depressed, or hopeless: not at all 3. Trouble falling or staying asleep, or sleeping too much: not at all 4. Feeling tired or having little energy: not at all 5. Poor appetite or overeating: not at all 6. Feeling bad about yourself - or that you are a failure or have let yourself or your family down: not at all 7. Trouble concentrating on things, such as reading the newspaper or watching television: not at all 8. Moving or speaking so slowly that other people could have noticed. Or the opposite - being so fidgety or restless that you have been moving around a lot more than usual: not at all 9. Thoughts that you would be better off or of hurting yourself in some way: not at all Total score: 0 Source: Developed by Drs. Pietro Sabillon, Naomi Red, Sanjay Zavala and colleagues, with an educational lia from [email or web address]. Thrive Questionnaire Date Thrive assessed: 08/21/25 I am a: Patient What is your living situation today?: I have a steady place to live Within the past 12 months, did the food you bought not last and you didn't have the money to get more?: Never true Within the past 12 months, did you worry whether your food would run out before you got money to buy more?: Never true Do you have trouble paying for medicines?: No Do you have trouble getting transportation to medical appointments?: Yes Do you have trouble paying your heating and electricity bill?: No Do you have trouble taking care of your child, family member or friend?: No Do you have trouble with day-to-day activities such as bathing, preparing meals, shopping, managing finances, etc.?: No Are you currently unemployed and looking for a job?: No Are you interested in more education?: No THRIVE Score: 1 AUDIT C Alcohol Use Questionnaire (AUDIT-C) 1. How often do you have a drink containing alcohol?: 4 or more times a week 2. How many drinks containing alcohol do you have on a typical day when you are drinking?: 1 or 2 3. How often do you have six or more drinks on one occasion?: Never Total Score: 4 SHAW-7 AMB Questionnaire SHAW-7 Date SHAW - 7 assessed: 08/21/25 Feeling nervous, anxious, or on edge: 2 = More than half the days Not being able to stop or control worryin = Not at all Worrying too much about different things: 0 = Not at all Trouble relaxin = Not at all Being so restless that it is hard to sit still: 0 = Not at all Becoming easily annoyed or irritable: 3 = Nearly every day Feeling afraid as if something awful might happen: 0 = Not at all Total SHAW-7 score (0-4 normal; 5-9 mild; 10-14 moderate; 15-21 severe): 5 Source: Developed by Drs. Pietro Sabillon, Naomi Red, Sanjay Zavala and colleagues, with an educational lia from [email or web address]. Physical exam (Primary Care) Tobacco/Smoking Status: Tobacco use Status Patient Tobacco Use Status Never used Tobacco 08/21/25 08:36 Thrive Assessment: Date of Thrive Assessment Date Thrive assessed 08/21/25 08/21/25 08:36 Office Procedures Flu Questionnaire Does the patient have a severe egg allergy?: No Does the patient have severe life threatening allergies?: No Does the patient have a fever or illness today?: No Has the patient ever had Guillain-[place] Syndrome?: No Has the patient ever had any past reaction to a flu shot?: No Immunizations Fluarix [id number] (PF) 45 mcg (15 mcg x 3)/0.5 mL IM syringe Performing Provider: Blake Guerrero MD [facility] Documented (not given) by: HUNTER Vergara on 09/19/25 10:25 Reason Not Given: Patient Refused Coding Assessment & Plan Assessment & Plan Orders: Orders Influenza [id number] Immunization Today Z23 - Encounter for immunization
== END 2025-09-19 10:57 | disposition home or self-care (01) ==
LOC: HO.HMCSH 10:01
PROVIDERS: PCP Internal Medicine; Visit Provider Internal Medicine
DX: Z23 Encounter for immunization (principal)

== ENCOUNTER → 2025-09-19 10:01 | Outpatient (BNVA) | payer BC, SELFPAY | PROVIDERS: PCP Internal Medicine; Visit Provider Internal Medicine | DX: Z28.82 Immunization not carried out because of caregiver refusal (principal) | CPT/HCPCS: 90471; 96127; 99212 ==

== ENCOUNTER → 2025-09-23 15:05 | Outpatient (BNV) | payer BC, SELFPAY | PROVIDERS: PCP Internal Medicine; Visit Provider Radiology Diagnostic Radiology | DX: M51.369 Other intervertebral disc degeneration, lumbar region without mention of lumbar back pain or lower extremity pain (principal); M48.061 Spinal stenosis, lumbar region without neurogenic claudication | CPT/HCPCS: 72148 ==

== ENCOUNTER 2025-09-23 15:06 | Outpatient (REF) | payer BC, SELFPAY ==
--- NOTE | ~2025-09-23 | MR_ITS ---
CLINICAL HISTORY: M54.30 - Sciatica, unspecified side Exam: Unenhanced MRI of the lumbar spine. Comparison: None. Findings: Lumbar vertebral body heights and alignment are generally maintained. Lumbar vertebral signal intensities are maintained as well. There is diffuse nemv-oo-bnykaidg disc desiccation. There is some disc space narrowing, more significant at L3-4 level and L5-S1 level. Conus medullaris terminates at L1 level. Axial images reveal the following: L1-2: No disc 1 L2-3: Mild diffuse disc bulging is present. No significant spinal stenoses. There appears to be [id number]-[id number] left foraminal stenoses. No significant right foraminal stenoses. L3-4: Moderate diffuse disc bulging and minimal facet arthropathy with mild ligamentum flavum hypertrophy result in mild appearing central canal stenoses (14; 38 and 15; 21). There is fairly severe appearing bilateral foraminal stenoses. L4-5: Diffuse moderate disc bulging with bilateral facet arthropathy and ligamentum flavum hypertrophy result in severe appearing central canal stenoses (14; 44 and 15; 28). There is severe appearing right and likely moderate left foraminal stenoses. L5-S1: Mild diffuse disc bulging, slightly more prominent in the right foraminal region is present. No spinal or left foraminal stenoses. There is severe appearing right foraminal stenoses. Impression: 1. Multilevel degenerative disc and facet disease with spinal and foraminal stenoses as described above. Central canal stenoses most significant at L4-5. There are significant foraminal stenoses L3-S1 as described above. This document has been electronically signed by: Chapito Gaffney MD on 09/25/2025 18:00:23
--- OUTSIDE RECORDS SUMMARY | 2025-09-23 15:10 | XMS_ITS | Patient Health Record ---
Author Organization [facility] Address [address] [place] [id number] Care Team Providers Care Research Psychologist Name Role Phone Pietro Posada [phone] Reason For Referral No Information Plan Of Treatment No Information
== END 2025-09-23 15:07 | disposition home or self-care (01) ==
LOC: HO.MRI 15:06
PROVIDERS: PCP Internal Medicine; Visit Provider Internal Medicine
DX: M54.30 Sciatica, unspecified side (principal)
CPT/HCPCS: 72148